=== PATIENT | female | born 1950 | race Caucasian/White ===

== ENCOUNTER 2020-12-11 13:18 | Outpatient (CLI) | payer MEDICARE | END 2020-12-11 23:59 | disposition home or self-care (01) | LOC: CFH 13:18 | PROVIDERS: ATTEND Internal Medicine Cardiovascular Disease | DX: R94.39 Abnormal result of other cardiovascular function study (principal); J84.10 Pulmonary fibrosis, unspecified; J92.9 Pleural plaque without asbestos | CPT/HCPCS: 75571 ==